=== PATIENT | female | born 1960 | race Caucasian/White ===

== ENCOUNTER 2021-12-08 08:37 | Emergency (ER) | payer BC ==
[~2021-12-08] VITALS: Ht 165.1 cm; Wt 70.3 kg
[2021-12-08 09:20] VITALS: BP_SYST 125
--- NOTE | 2021-12-08 09:25 | NUR ---
Pt triaged and placed in waiting room; pending MD evaluation.
--- NOTE | 2021-12-08 10:32 | NUR ---
Patient to ER bed 4 for evaluation. Side rails up. Report given to Meng PATEL.
--- NOTE | 2021-12-08 10:34 | NUR ---
Pt presents to the ER bib self c/o back pain from mechanical fall occurance at 0600. Pt is aaox4. Denies AGUILAR, N/V. Skin intact. no swelling, Pt further states no loss of conscienceness. Pt states taking Cyclobenzaprine 10mg and 2 Tylenol extra strength this morning. Pain level 7. Bedrails up bed down. VSS 138/80 HR 69 (spo2) 94%
--- NOTE | 2021-12-08 10:35 | NUR ---
ER at bedside examining patient.
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
[2021-12-08] MEDS ORDERED: IBUP-1969 PO (11:39)
[2021-12-08] MEDS ORDERED: SOM350 PO (11:39)
[2021-12-08] MEDS ORDERED: HYDROcodone/ACETAMIN 10-325 MG TAB PO ONE (12:00)
[2021-12-08] MEDS ORDERED: IBUPROFEN 600 MG TABLET PO ONE (12:00)
[2021-12-08 12:03] VITALS: BP_SYST 138
--- NOTE | 2021-12-08 12:03 | NUR ---
Patient given written and verbal discharge instructions and verbalizes understanding. ER MD discussed with patient the results and treatment provided. Patient in stable condition. ID arm band removed. IV catheter removed intact and dressing applied, no active bleeding. Rx of Ibuprofen and Soma given. Patient educated on pain management and to follow up with PMD. Opportunity for questions provided and answered. Medication side effect fact sheet provided.
== END 2021-12-08 12:03 | disposition home or self-care (01) ==
LOC: SED 08:37
DX: S33.5XXA Sprain of ligaments of lumbar spine, initial encounter (principal); S00.03XA Contusion of scalp, initial encounter; W09.8XXA Fall on or from other playground equipment, initial encounter; Y93.89 Activity, other specified; Y92.89 Other specified places as the place of occurrence of the external cause; Y99.8 Other external cause status
CPT/HCPCS: 70450-TC; 72100-TC; 76376; 99284